=== PATIENT | male | born 1975 | race Caucasian/White ===

== ENCOUNTER 2016-10-16 13:40 | Emergency (ER) | payer BC ==
[~2016-10-16 13:40] MED LIST: ATARAX PO; BENADRYL25 M1; DICLOFENAC PO; LORTAB 5/500 TA1 TA2 PO; MEDROL PO; NO MEDICATIONS; PEPCID; PERCOCET5/325 PO; PREDNISONE; PREDNISONE10 MG PO; PREDNISONE50 MG PO; SUBOXONE 2 MG-1 EAC1 SL; SUBOXONE 8 MG-1 EAC1; TORADOL10 MG PO
== END 2016-10-16 14:50 | disposition home or self-care (01) ==
LOC: SED 13:40
DX: L23.9 Allergic contact dermatitis, unspecified cause (principal); F17.200 Nicotine dependence, unspecified, uncomplicated
CPT/HCPCS: 96372; 99283; J1100